=== PATIENT | male | born 1935 | race Caucasian/White ===

== ENCOUNTER → 2016-12-25 | Outpatient (REF) ==
[~2016-12-25] MED LIST: ASPIRIN 81M81 MG/TA2 PO; BACTRIM DS 8001 TAB PO; COLACE 100100 MG/CAP PO; CRESTOR20 MG PO; DIABETA 2.5MG2.5 MG PO; EYE VITAMIN PO; FLOMAX 0.40.4 MG/CAP PO; LEXAPRO20 MG PO; MIRALAX PA17 GM/Dose PO; NORCO 325 MG-51 TAB PO; NOVLOG SQ; PLAVIX 75MG TAB75 MG PO; TYLENOL 325MG325 MG PO; ZYLOPRIM 100MG100 MG PO
== END ==
LOC: ZLAB.WCH 18:05
DX: Z01.89 Encounter for other specified special examinations (principal)

== ENCOUNTER → 2017-11-12 | Outpatient (REF) | LOC: ZLAB.WCH 17:45 | DX: Z01.89 Encounter for other specified special examinations (principal) ==

== ENCOUNTER → 2018-02-27 | Outpatient (REF) ==
[2018-02-27 17:35] LABS: THYROID STIMULATING HORMONE 1.68 uIU/mL (0.465-4.680)
[2018-02-27 18:02] LABS: PSA-TOTAL 4.06 ng/mL (0-4)
== END ==
LOC: ZLAB.WCH 16:50
PROVIDERS: Physician Assistant
DX: Z01.89 Encounter for other specified special examinations (principal)
CPT/HCPCS: G0103